=== PATIENT | male | born 1960 | race Caucasian/White ===

== ENCOUNTER 2021-09-05 14:21 | Outpatient (CLI) | payer OTHER, SELFPAY ==
--- NOTE | ~2021-09-05 | CT_ITS ---
EXAMINATION: CTA chest PE protocol DATE: 09/05/2021 15:17 INDICATION: Elevated d-dimer TECHNIQUE: Computed tomography angiography (CTA) of the chest was performed with 100 mL Omnipaque-350 intravenous contrast timed to evaluate the pulmonary arteries. Coronal maximum intensity projection 3D-reconstructions were created by the technologist. Automated exposure control and iterative reconst ruction technique were employed. Exam dose: 929.51 mGy-cm total exam DLP. COMPARISON: None. FINDINGS: There is diagnostic contrast enhancement of the pulmonary arteries and no evidence of pulmo nary embolism. No thoracic aortic aneurysm or dissection. Heart size is within normal range. No pericardial or pleural effusion. Azygos lobe, a normal anatomic variant. Approximately 4 mm lingular soft tissue nodule. No pulmonary consolidation. Normal morphology of the adrenal glands. No suspicious osteolytic or osteoblastic lesions are noted. IMPRESSION: No evidence of pulmonary embolism 4 mm lingular nodule; if the patient is a smoker or has other risk factors for lung cancer, consider 01/22/[address] thorax follow-up Reviewed, dictated and finalized at Location [facility]. Reviewed, dictated and finalized at location A. FORCE ADVISOR
== END 2021-09-05 14:22 | disposition home or self-care (01) ==
DX: R79.1 Abnormal coagulation profile (principal)
CPT/HCPCS: 71275; Q9967

== ENCOUNTER 2021-09-26 13:27 | Outpatient (CLI) | payer OTHER, SELFPAY ==
--- NOTE | 2021-09-26 | ECHO_ITS ---
Patient Info Name: Pelon Landeros Age: 60 years : 1960 Gender: Male Ht: 73 in Wt: 250 lbs BSA: 2.45 m2 HR: 80 bpm BP: 177 / 103 mmHg Heart Rhythm: Sinus Rhythm Technical Quality: Fair Exam Date: 09/26/2021 1:59 PM Exam Location: [facility] Patient Status: Outpatient Admit Date: 09/26/2021 Staff Ordering Physician: DENNY GILL Corporate Licensed Broker: Dennise Cadena RDCS Attending Provider: DENNY GILL Exam Type: CA echo doppler color flow Study Info Indications R09.89 - JVD Complete two-dimensional, color flow and Doppler transthoracic echocardiogram is performed. Summary 1. Complete two-dimensional, color flow and Doppler transthoracic echocardiogram is performed. 2. Left ventricular chamber dimension is normal. 3. Left ventricular systolic function is normal, estimated at 60-65%. 4. There is mildly increased left ventricular wall thickness. 5. The left ventricular diastolic function is grade I diastolic dysfunction. 6. There is mild tricuspid valve regurgitation. Left Ventricle Left ventricular chamber dimension is normal. Left ventricular systolic function is normal, estimated at 60-65%. There is mildly increased left ventricular wall thickness. The left ventricular diastolic function is grade I diastolic dysfunction. Right Ventricle Right ventricular chamber dimension is normal. Right ventricular systolic function is normal. Left Atria Left atrial chamber dimension is normal. Right Atria Right atrial chamber dimension is normal. Atrial Septum Thin and hypermobile atrial septum.. Aortic Valve The aortic valve is trileaflet. There is mild aortic valve sclerosis. There is no aortic valve stenosis. There is trace aortic valve regurgitation. Pulmonic Valve The pulmonic valve is normal. There is no pulmonic valve stenosis. There is trace pulmonic regurgitation. Mitral Valve The mitral valve has normal leaflets. There is no mitral valve stenosis. There is trace mitral valve regurgitation. Tricuspid Valve The tricuspid valve leaflets are normal. There is no significant tricuspid valve stenosis. There is mild tricuspid valve regurgitation. No pulmonary hypertension, estimated pulmonary arterial systolic pressure is 31 mmHg. Pericardium/Pleural The pericardium appears normal. There is no pericardial effusion. Inferior Vena Cava Normal inferior vena cava with >50% collapse upon inspiration consistent with normal right atrial pressure, 10 mmHg. Aorta The aortic root size at the sinus of Valsalva is normal. Left Ventricular Outflow Tract Name Value Normal LVOT 2D LVOT Diameter 2.0 cm LVOT Doppler LVOT Peak Gradient 4 mmHg LVOT Mean Gradient 2 mmHg LVOT VTI 19 cm LVOT VTI/AV VTI Ratio 1.0 LVOT Stroke Volume 63 ml LVOT CO 5.0 l/min LVOT CI 2.1 l/min/m2 Pulmonic Valve
--- NOTE | ~2021-09-26 | US_ITS ---
EXAMINATION: US thyroid DATE: 09/26/2021 15:20 INDICATION: Enlarged thyroid. TECHNIQUE: Multiple ultrasound images of the thyroid were obtained. COMPARISON: None. FINDINGS: The right thyroid lobe measures 4.7 x 2.2 x 2.0 cm. The left thyroid lobe measures 4.2 x 2.3 x 1.8 c m. In the left thyroid lobe, there is a 4 mm coarse calcification. In the left thyroid lobe, there i s a 2.5 cm mixed cystic and solid, isoechoic, [id number]-uvew nodule with lobulated margin without ec hogenic foci (TI-RADS TR4). In the right thyroid lobe, there is an 8 mm solid, isoechoic, wider-than- tall nodule with ill-defined margin without echogenic foci (TR3). IMPRESSION: 1. Thyroid nodules. Ultrasound-guided fine-needle aspiration of the 2.5 cm left thyroid nodule is rec ommended. Reviewed, dictated and finalized at location E. OFF SAW[employer]ER [employer] IMPRESSION: 1. Thyroid nodules. Ultrasound-guided fine-needle aspiration of the 2.5 cm left thyroid nodule is recommended.
== END 2021-09-26 13:28 | disposition home or self-care (01) ==
DX: E04.9 Nontoxic goiter, unspecified (principal)
CPT/HCPCS: 76536; 93306

== ENCOUNTER 2021-10-03 12:57 | Outpatient (CLI) | payer OTHER, SELFPAY ==
--- NOTE | ~2021-10-03 | US_ITS ---
EXAMINATION: US FNA w image guidance DATE: 10/03/2021 14:08 INDICATION: Left thyroid nodule TECHNIQUE: A time-out was performed to verify the patient's name, date of , and procedure to be performed . The procedure and its benefits and risks were discussed with the patient. Risks specifically discus sed included bleeding and infection. The patient understood the risks and agreed to proceed. The neck was prepped and draped in the usual sterile manner. 3 mL 1% lidocaine was used for local anesthesia . 6 passes were made with a 25G needle into the lesion. Appropriate needle location was documented with continuous sonographic guidance. The specimens were passed to the biochemistry technologist in the room. A sterile bandage was applied. There were no immediate complications. FINDINGS: Grayscale ultrasound images demonstrate biopsy needles advanced into a 1.8 cm solid TI-RADS 4 left th yroid nodule. IMPRESSION: 1. Successful ultrasound-guided fine needle aspiration of . Reviewed, dictated and finalized at location A. D SUPERINTENDENT
== END 2021-10-03 12:58 | disposition home or self-care (01) ==
LOC: ANHIMG 13:01
DX: E04.1 Nontoxic single thyroid nodule (principal)
CPT/HCPCS: 10005; 88173; 88305

== ENCOUNTER 2022-03-20 13:47 | Outpatient (CLI) | payer OTHER, SELFPAY ==
--- NOTE | ~2022-03-20 | CT_ITS ---
EXAMINATION: CT diagnostic chest wo con DATE: 03/20/2022 14:13 INDICATION: Lung nodule. Nonsmoker. TECHNIQUE: Computed tomography (CT) of the chest was performed without intravenous contrast. Automate d exposure control and iterative reconstruction technique were employed. Exam dose: 331.45 mGy-cm to yovanny exam DLP. COMPARISON: 09/05/2021 CTA chest FINDINGS: Interval mildly decreased size of small lingular nodule since 09/05/2021, most consistent wi th benign process. Azygos lobe, normal variant. No pulmonary infiltrate or consolidation or pulmonary mass lesion. No thoracic aortic aneurysm or hilar or mediastinal mass lesion or lymphadenopathy. Normal heart size . No pericardial or pleural effusion. Normal morphology of the adrenal glands. IMPRESSION: Interval decreased size of small lingular nodule, most consistent with benign process. F urther evaluation is not required. Reviewed, dictated and finalized at Location A. Reviewed, dictated and finalized at location B. IMPRESSION: Interval decreased size of small lingular nodule, most consistent with benign process. Further evaluation is not required.
== END 2022-03-20 13:48 | disposition home or self-care (01) ==
DX: R91.1 Solitary pulmonary nodule (principal)
CPT/HCPCS: 71250

== ENCOUNTER 2022-10-17 12:53 | Outpatient (CLI) | payer OTHER, SELFPAY ==
--- NOTE | ~2022-10-17 | US_ITS ---
EXAMINATION: US thyroid DATE: 10/17/2022 14:05 INDICATION: Left thyroid nodule. TECHNIQUE: Multiple ultrasound images of the thyroid were obtained. COMPARISON: Ultrasound 09/26/2021 FINDINGS: The right thyroid lobe measures 4.9 x 1.8 x 2.0 cm. The left thyroid lobe measures 5.0 x 1.8 x 2.2 c m. In the right thyroid lobe, there is a 10 mm solid, isoechoic, wider than tall nodule with smooth margin without echogenic foci (TI-RADS TR3). In the left thyroid lobe, there is a 2.6 cm predominantl y solid, hypoechoic, wider than tall nodule with ill-defined margin without echogenic foci (TR4). The re is a 3 mm coarse calcification in left thyroid isthmus. IMPRESSION: 1. Left thyroid nodule, stable from 09/26/2021. Biopsy on 10/03/2021 was benign. Reviewed, dictated and finalized at location A. SPRAYER FIRST
== END 2022-10-17 12:54 | disposition home or self-care (01) ==
DX: E04.1 Nontoxic single thyroid nodule (principal)
CPT/HCPCS: 76536

== ENCOUNTER 2022-12-26 10:52 | Emergency (ER) | payer OTHER, SELFPAY ==
[2022-12-26 11:03] VITALS: BP 158/105; PULSE 85; RESP 16; TEMP 37; O2SAT 99
--- NOTE | 2022-12-26 11:13 | ED.URI ---
HPI - URI/Sore Throat General Chief Complaint: Upper Respiratory Infection Stated Complaint: COUGH/CHEST/EAR Time Seen by Provider: 12/26/22 11:13 Source: patient Mode of arrival: ambulatory Limitations: no limitations History of Present Illness HPI Narrative: Patient is a 62-year-old male who presents with congestion, cough, left ear pain and intermittent sore throat for 2 weeks. Patient states all of his grandkids have been sick, but were treated with antibiotics and are now better. Patient states sore throat is worse 1st thing in the morning. States he has tried [id number] medication with no relief. Denies any fever or chills, shortness of breath, headache, sinus pressure. Related Data Allergies Allergy/AdvReac Type Severity Reaction Status Date / Time No Known Allergies Allergy Verified 12/26/22 11:00 Review of Systems Review of Systems: All systems reviewed & are unremarkable except as noted in HPI and below Constitutional: Constitutional: Denies body ache(s), Denies chills, Denies fatigue, Denies fever(s), Denies headache(s), Denies malaise and Denies weakness Eyes: Eyes: Denies blurry vision, Denies itchy eyes and Denies loss of vision ENT: Reports otalgia, Denies headache(s), Reports nasal congestion, Reports nasal discharge, Denies sinus pain and Reports sore throat Cardiovascular: Cardiovascular: Denies chest pain, Denies irregular heart rhythm and Denies dyspnea Respiratory: Respiratory: Reports cough and Denies dyspnea Gastrointestinal: Gastrointestinal: Denies abdominal pain, Denies diarrhea, Denies nausea and Denies vomiting Musculoskeletal: Musculoskeletal: Denies back pain, Denies myalgias and Denies arthralgias Integumentary/Breasts: Skin/Breast: Denies pruritus and Denies rash Neurologic: Denies headache(s), Denies loss of vision and Denies weakness Psychiatric: Psychiatric: Reports no additional psychiatric complaints Endocrine: Endocrine: Denies fatigue Allergic/Immunologic: Allergic/Immunologic: Denies itchy eyes PMFSH Past Medical History Medical History Flat feet, bilateral History of stress test (~2004) Prostate cancer Surgical History Surgical History H/O bilateral inguinal hernia repair (~1970) History of colonoscopy Family History Family History Other CHF (congestive heart failure) Diabetes mellitus Kidney disease Pancreatic cancer Thyroid cancer Social History Social History Smoking status: Never smoker Alcohol intake: current Substance use: never Substance use type: does not use Lack of Transportation: No Lack of Food: Never True Current Housing: Decline to Answer Concerned About Future Housing: Decline to Answer Difficulty Paying Gas/Electric Bills: Decline to Answer Difficulty Paying for Meds: Decline to Answer Currently Unemployed: Decline to Answer Education: Decline to Answer Difficulty w/ Childcare or Family Care: Decline to Answer Comments At time of signature, agree with nursing past medical, surgical, social and family history. There is no relevant family history pertinent to the presenting complaint. Exam Const: General: cooperative, healthy appearing, comfortable, no acute distress and well nourished Nutritional Appearance: well nourished Orientation/consciousness: patient oriented x3 Limitations: no limitations HENMT: Head: normal to inspection, normocephalic and atraumatic Ears: hearing grossly normal bilaterally, external ears normal, TM normal on the right, EAC's normal, no periauricular adenopathy and TM abnormal bulging on the left and erythematous on the left Face/Nose/Sinus: Normal external nose present, Abnormal mucous membranes and turbinates present erythematous bilateral and
== END 2022-12-26 11:27 | disposition home or self-care (01) ==
PROVIDERS: Emergency Provider Nurse Practitioner Family
DX: J32.9 Chronic sinusitis, unspecified (principal); J40 Bronchitis, not specified as acute or chronic; H65.192 Other acute nonsuppurative otitis media, left ear
CPT/HCPCS: 99213; G0463

== ENCOUNTER 2023-06-30 08:11 | Emergency (ER) | payer OTHER, SELFPAY ==
--- NOTE | 2023-06-30 08:23 | ED.URI ---
HPI - URI/Sore Throat General Chief Complaint: Upper Respiratory Infection Stated Complaint: COUGH/CONGESTION Time Seen by Provider: 06/30/23 08:45 Source: patient and RN notes reviewed Mode of arrival: ambulatory Limitations: no limitations History of Present Illness HPI Narrative: 62 year old male presents with concern for 2 week history of cough and chest congestion. He reports he has been taking OTC meds without relief. Reports cough keeps him awake at night. He denies fever, reports some body aches MD elicited complaint: cough and sore throat Related Data Allergies Allergy/AdvReac Type Severity Reaction Status Date / Time No Known Allergies Allergy Verified 06/30/23 08:32 Review of Systems Review of Systems: CONSTITUTIONAL: Denies malaise, chills, sweats, or fever. EYES: Denies visual changes, redness, or discharge. ENT: Reports rhinorrhea, congestion. Denies sinus pain, otalgia and sore throat. CARDIOVASCULAR: Denies chest pain, palpitations, or edema. RESPIRATORY: Reports cough and chest congestion. Denies dyspnea. GASTROINTESTINAL: Denies abdominal pain, nausea, vomiting, diarrhea SKIN: Denies rash or itching. MUSCULOSKELETAL: Denies myalgia. NEUROLOGIC: Denies headache. All systems reviewed & are unremarkable except as noted in HPI and below PMFSH Past Medical History Medical History Flat feet, bilateral History of stress test (~2004) Prostate cancer Surgical History Surgical History H/O bilateral inguinal hernia repair (~1969) History of colonoscopy Family History Family History Other CHF (congestive heart failure) Diabetes mellitus Kidney disease Pancreatic cancer Thyroid cancer Social History Social History Smoking status: Never smoker Alcohol intake: current Substance use: never Substance use type: does not use Lack of Transportation: No Lack of Food: Never True Current Housing: Decline to Answer Concerned About Future Housing: Decline to Answer Difficulty Paying Gas/Electric Bills: Decline to Answer Difficulty Paying for Meds: Decline to Answer Currently Unemployed: Decline to Answer Education: Decline to Answer Difficulty w/ Childcare or Family Care: Decline to Answer Comments At time of signature, agree with nursing past medical, surgical, social and family history. There is no relevant family history pertinent to the presenting complaint Exam Narrative: GENERAL: Well-appearing, well-nourished, and in no acute distress. HEAD: Normocephalic EYES: PERRLA, conjunctivae clear ENT: Nares clear, turbinates edematous and erythematous, clear discharge. Mucous membranes moist. TM pearly schuster with dull light reflex bilaterally; no tragal tenderness. Oropharynx not erythematous without lesions. Tonsils not enlarged and without exudate, no drooling, no hoarseness, no trismus, uvula midline. NECK: Supple. No lymphadenopathy CHEST: Clear to auscultation, breath sounds equal. No wheezing, rhonchi, rales, or stridor. No respiratory distress, speaks in full sentences. HEART: Regular rate and rhythm. No murmur heard. SKIN: Warm, dry, no rash. NEURO: Alert and oriented x3. PSYCH: Normal mood and affect Course Course Emergency Course: Patient is aware of diagnosis, understands and agrees to treatment plan. Anticipatory guidance given. Patient agrees to follow-up as directed and is aware of reasons to seek care at the emergency department. Portions of this record may have been created with voice recognition software Level of Care: Express Care Visit Vital Signs Vital signs: Reviewed. MDM - URI/Sore Throat MDM Narrative Medical decision making narrative: Differential diagnosis considered: [place] virus, strep pharyngitis, all
[2023-06-30 08:25] VITALS: BP 174/72; PULSE 92; RESP 16; TEMP 36.3; O2SAT 100
== END 2023-06-30 08:57 | disposition home or self-care (01) ==
PROVIDERS: Emergency Provider Nurse Practitioner
DX: J40 Bronchitis, not specified as acute or chronic (principal); Z85.46 Personal history of malignant neoplasm of prostate
CPT/HCPCS: 99213; G0463

== ENCOUNTER 2023-08-11 10:44 | Outpatient (CLI) | payer OTHER, SELFPAY ==
--- NOTE | ~2023-08-11 | XR_ITS ---
XR knee RT min 4V 08/11/2023 11:09 Indication: Medial knee pain. Procedure: 4 views right knee Comparison: No prior studies for comparison. Findings: There is near complete loss of joint space medially with varus angulation. Small knee effus ion. No fracture or traumatic malalignment. Impression: 1: Advanced joint space loss medial compartment with varus angulation. Reviewed, dictated and finalized at location L. [employer] Impression: 1: Advanced joint space loss medial compartment with varus angulation.
== END 2023-08-11 10:45 | disposition home or self-care (01) ==
PROVIDERS: Visit Provider Orthopaedic Surgery
DX: M17.11 Unilateral primary osteoarthritis, right knee (principal)
CPT/HCPCS: 73564

== ENCOUNTER 2023-11-23 09:52 | Outpatient (CLI) | payer OTHER, SELFPAY ==
--- NOTE | 2023-11-23 10:40 | ECG_ITS ---
Measurements Intervals [place] Rate: 70 P: 30 [place]: 162 QRS: 14 QRSD: 92 T: 22 QT: 365 QTc: 386 Interpretive Statements SINUS RHYTHM LOW QRS VOLTAGE BORDERLINE ECG SEE SCANNED COPY FOR SIGNATURE MTDD
[2023-11-23 11:18] LABS: Basophils Percent Auto 0.6 % (0.2-1.2); Eosinophils Absolute Auto 0.4 K/mm3 (0-0.3); Eosinophils Percent Auto 5.8 % (0-4.4); Hematocrit 43.8 % (42.0-52.0); Immature Granulocyte Absolute 0.01 K/mm3 (0.00-0.031); Immature Granulocyte Percent A 0.2 % (0-0.5); Lymphocytes Absolute Auto 1.64 K/mm3 (0.9-3.2); Lymphocytes Percent Auto 26.5 % (18.3-44.2); Mean Corpuscular Hemoglobin 29.2 pg (26-34); Mean Corpuscular Volume 91.3 fl (80-100); Mean Platelet Volume 9.6 fl (7.4-10.4); Monocytes Absolute Auto 0.7 K/mm3 (0.1-0.6); Monocytes Percent Auto 11.5 % (2.6-8.5); Neutrophils Absolute Auto 3.4 K/mm3 (1.3-6.7); Neutrophils Percent Auto 55.4 % (45.5-73.1); Platelet Count Result 255 k/mm3 (150-375); Red Cell Distribution Width 13.1 % (11.5-14.5); White Blood Count 6.2 K/mm3 (4.5-10.0)
== END 2023-11-23 09:53 | disposition home or self-care (01) ==
LOC: ANHSURGERY 09:56
PROVIDERS: Visit Provider Orthopaedic Surgery
DX: M17.11 Unilateral primary osteoarthritis, right knee (principal); I10 Essential (primary) hypertension; Z01.818 Encounter for other preprocedural examination
CPT/HCPCS: 36415; 85025; 93005

== ENCOUNTER 2023-12-15 00:02 | Day surgery (SDC) | payer OTHER, SELFPAY ==
--- NOTE | 2023-11-23 09:40 | PC.NURSE ---
PRE-OP INSTRUCTIONS, PLEASE READ CAREFULLY Report to the Outpatient Waiting Room, entrance under the green pavilion located off [facility], at time _1030_ on date _12/15/23_. Planned Procedure Time: _1230_. BRING YOUR WALKER, PACK A SMALL OVERNIGHT BAG AND LEAVE IN THE CAR Time changes happen often and if your time is changed the preop area will call you the afternoon before. - You and your visitor will be asked to self-screen and do not enter if you have any COVID symptoms. - A mask is optional within the hospital at this time. Patients may have clear liquids (water, carbonated beverages, clear teas, apple juice) until 3 hours prior to surgery (0930 AM) with a maximum of 20 ounces. - No food from midnight until time of surgery Take the following medications with a SIP of water the morning of surgery: _AMLODIPINE, & TYLENOL IF NEEDED_ DO NOT STOP ANY OF YOUR OTHER PRESCRIPTION MEDICATIONS PRIOR TO SURGERY ?EXCEPT THE FOLLOWING Medications to discontinue per DR. HUNTER - _ALEVE 7 DAYS PRIOR TO SURGERY, Date to take last dose 12/07/23_ Please no make-up, nail arabic, hairspray, perfume, deodorant, or body powder the day of surgery. No jewelry (including any body piercings) or valuables the day of surgery, leave them at home. Please take a shower or bath the night before, or the morning of, surgery with an antibacterial soap. Wear comfortable, loose fitting clothing. - Jewelry must be removed prior to entering the operating room. Rings and piercings that are not removed may be cut off. - The hospital will not accept responsibility for valuables. - Please leave all valuables, including medications, at home the day of surgery. If you are going home after surgery, a licensed regional truck driver must drive you home. - NO public transportation without another adult if you receive anesthesia. - We recommend that an adult stay with you for 24 hours following discharge. - We also recommend that you do not drive, make important decision, drink alcoholic beverages, or take any drugs that were not prescribed by your health care provider for at least 24 hours after your discharge time. Follow any additional instructions given to you from your surgeon. If you or anyone in your household have experienced Covid symptoms in the past week, please notify your surgeon or the nurse liaison at the phone number below for possible testing. Instructions given to _PATIENT & SPOUSE_and asked if any additional questions and then verbalized understanding. Patient advised to call surgeon office or pre surgery nurse liaison [phone] if any additional questions.
[2023-11-23 10:09] VITALS: BP 158/74; PULSE 76; RESP 20; TEMP 36.7; O2SAT 98; BMI 35.2
[2023-12-15] VITALS (11 sets, daily range): BP systolic 129–160; BP diastolic 65–92; PULSE 72–88; RESP 12–20; TEMP 36.6–36.9; O2SAT 98–100
--- NOTE | ~2023-12-15 | XR_ITS ---
EXAMINATION: [id number] DATE: 12/15/2023 15:25 INDICATION: Right knee arthroplasty. Postop. TECHNIQUE: 2 views of right knee were obtained. COMPARISON: Right knee radiographs 11/23/2023 FINDINGS: There is a medial compartment arthroplasty in near-anatomic alignment. No fracture. There a re tiny osteophytes in the lateral and patellofemoral compartments. There is gas in the soft tissues, consistent with recent surgery. IMPRESSION: 1. Medial compartment arthroplasty in near-anatomic alignment. Reviewed, dictated and finalized at location A.
--- NOTE | 2023-12-15 09:44 | WPDHPUPDATE1 ---
History and Physical Update Update Date/Time: 12/15/23 09:44 History and Physical has been reviewed, including an updated exam of the patient. There are NO changes in the patient's condition. Risks, benefits, and alternatives have been discussed and questions answered. Patient agrees to proceed with procedure.
[2023-12-15] MEDS: ACETAMINOPHEN 500 MG TABLET 1000 MG PO (11:10)
[2023-12-15] MEDS: TRANEXAMIC ACID 1,000MG/ISO100 1,000 MG/100 ML BAG 200 MG IVPB (11:15)
[2023-12-15] MEDS: LACTATED RINGERS 1,000 ML 30 ML IV CONT ×2 (11:20→15:08)
--- NOTE | 2023-12-15 12:47 | WPDANESEPPF ---
Anes - Initial Pre Proc Eval Procedure: Operation Date: 12/15/23 12:30 Proposed Procedures p Right Partial Knee Arthroplasty - Dorian Verduzco MD Date/Time: 12/15/23 12:47 Surgeon: Dorian Verduzco MD Pre Op Diagnosis: primary oa Right knee Patient Data Age: 63 Gender: M Height: 1.83 m Weight: 115.2 kg Last Vital Signs Temp 36.9 C 12/15/23 11:15 Pulse 79 12/15/23 11:15 Resp 14 12/15/23 11:15 BP 160/92 H 12/15/23 11:15 Pulse Ox 99 12/15/23 11:15 O2 Del Method Room Air 12/15/23 11:15 Allergies Allergy/AdvReac Type Severity Reaction Status Date / Time No Known Allergies Allergy Verified 12/15/23 11:27 Home Medications Medication Instructions Recorded Confirmed Type acetaminophen 500 mg tablet 1,000 mg PO Q6H PRN Pain 11/23/23 11/23/23 History amlodipine 5 mg tablet 5 mg PO DAILY 11/23/23 12/15/23 History naproxen sodium 220 mg tablet 220 mg PO BID PRN Pain 11/23/23 11/23/23 History (Aleve) aspirin 81 mg tablet,delayed 81 mg PO BID 14 days #28 tabs 12/15/23 Rx release meloxicam 15 mg tablet 15 mg PO DAILY #30 tabs 12/15/23 Rx oxycodone-acetaminophen 5 mg-325 1 - 2 tablet PO Q4-6H PRN pain #30 12/15/23 Rx mg tablet tabs prednisone 5 mg tablet 5 mg PO DAILY 3 weeks #21 tabs 12/15/23 Rx Patient hx anesthesia problems: none Family hx anesthesia problems: none Results Review: All pre-operative results and documents have been reviewed as part of the pre-operative evaluation. [facility] Past Medical History Medical History (Updated 12/15/23 @ 12:52 by Salty Chávez DO) Flat feet, bilateral History of stress test (~2004) Hypertension Prostate cancer Surgical History Surgical History (Updated 12/15/23 @ 10:35 by RAMESH Lu) H/O bilateral inguinal hernia repair (~1969) History of colonoscopy Family History Family History Other CHF (congestive heart failure) Diabetes mellitus Kidney disease Pancreatic cancer Thyroid cancer Social History Social History Smoking status: Never smoker Second hand tobacco smoke exposure: No Additional smoking assessment comments: PT DENIES ALL FORMS OF TOBACCO USE Alcohol intake: current Drinks per week: 1 Substance use: never Substance use type: does not use Lack of Transportation: No Lack of Food: Never True Current Housing: Decline to Answer Concerned About Future Housing: Decline to Answer Difficulty Paying Gas/Electric Bills: Decline to Answer Difficulty Paying for Meds: Decline to Answer Currently Unemployed: Decline to Answer Education: Decline to Answer Difficulty w/ Childcare or Family Care: Decline to Answer Living arrangements: with family Spiritual care concerns: No Anes - Eval Final PreProcedure Day of Procedure 12/15/23 12:47 Patient weight: obese Heart: regular rate and rhythm Lungs: clear to auscultation Airway: Mallampati scale class II Neurological: alert and oriented Last oral intake: >/= 8 hours ASA classification: III Emergent: no Anesthetic plan: proceed Anesthesia type and monitoring: general LMA and standard monitoring Results Review: All pre-operative results and documents have been reviewed as part of the pre-operative evaluation. Informed Consent: The patient's anesthetic plan and its attendant risks and benefits were discussed with the patient/family/POA. Questions were solicited and answers provided to the satisfaction of the patient/family/POA.
--- NOTE | 2023-12-15 13:06 | WPDANESPNB ---
Anes - Peripheral Nerve Block Date/Time: 12/15/23 13:06 I have discussed with the patient/family/POA the placement of a peripheral nerve block for post-operative pain management, including associated risks, benefits, complications, and side effects. Alternative methods of post-operative analgesia were detailed. Questions were solicited and answers provided to the satisfaction of the patient/family/POA. Time-Out: A pre-procedural Time-Out was completed immediately before starting the procedure and confirmed: Patient Identification, Site, Procedure, Patient Position and the Availability of Requisite Equipment. Clinical Indications: Acute post-operative pain management requested by the operative surgeon. Nerve Block Insertion Note Anes-nerve block: adductor canal right Patient position: supine Skin prep: chlorhexidine Needle: 22 gauge, stimulating, insulated echogenic needle. Needle length: 80 mm Technique: ultrasound Injectate: bupivacaine 0.5% with epi 5 mcg/ml (30cc - no epi) Observations: tolerated well Complications: none Procedure start time:: 1258 Procedure end time:: 1302
[2023-12-15] MEDS: ceFAZolin 2 GM/D5W 50 ML 2 GM/50 ML BAG IVPB (13:25)
[2023-12-15] MEDS: SODIUM CHLORIDE 0.9% IV 37.7 ML, MORPHINE SULFATE INJ (*CRX) 2 MG, ROPivacaine HCL 1% 2... INFILTRATE (13:40)
--- NOTE | 2023-12-15 15:03 | P.OP_ITS ---
Procedure Note - Detailed Date of Procedure 12/15/23 Pre-op Diagnosis Degenerative arthritis, right knee. Post-op Diagnosis Same Procedure Performed Partial knee arthroplasty, right knee, medial compartment. Surgeon Dorian Verduzco MD Consultant Intern Nicci Martinez PA-C Anesthesia General Findings Moderate to severe medial compartment disease. Cartilage wear and softening. Bone exposed anteromedial tibia. Complex meniscus tear and erosive changes on the femur. Patellofemoral and lateral compartments normal. ACL normal. Significant medial pseudolaxity, and hyperextension. Description of Procedure The patient was given a general anesthetic. Preoperative antibiotics were given. The knee was prepped and draped in the usual sterile fashion. A longitudinal incision was created along the medial aspect of the patellar tendon. A minimally invasive optimized mid vastus approach was completed. No medial release was taken. The external alignment guide was used to cut the tibia with anatomic posterior slope. A 4 millimeter resection was taken. The spacer block technique was utilized to measure flexion and extension gaps after the osteophytes were removed. The difference was used to calculate the distal resection. The distal cutting block was utilized to cut the distal femur. The AP and chamfer block was utilized for this last cuts. The femur and tibia were sized. Range of motion and gap balancing was assessed. This was tested with the 1.5 millimeter spacer. The bony surfaces were cleaned with lavaged. Lug holes were drilled. The real components were cemented into position. Excess cement was carefully removed. The tourniquet was released. Meticulous hemostasis was maintained. The wound was closed with interrupted 1 Vicryl suture followed by a running 0 Quill suture and 2-0 Quill suture. Steri-Strips are placed in the skin the patient was extubated and brought to recovery room in stable condition. There were no complications. Physician surgical assistant certified, Nicci Martinez PA-C, required for surgery; including patient positioning, draping, tissue retraction, maintaining instrument position, cement removal, wound closure, and dressing placement. Implants [facility] EHR PKR system femur size 4, tibia size 3, 10 mm polyethylene insert . One batch Simplex antibiotic cement. Estimated Blood Loss 50 Drains No Pathology None sent Complications No immediate complications Condition Stable Disposition PACU [facility] Billing Surgery - Charge Forward: Surgery Billing
[2023-12-15] MEDS: fentaNYL CITRATE INJ (*CRX) 100 MCG/2 ML VIAL 25 MCG IV PUSH ×2 (15:42→15:51)
[2023-12-15] MEDS: oxyCODONE HCL (*CRX) 5 MG TAB IR PO (16:45)
== END 2023-12-15 17:22 | disposition home or self-care (01) ==
PROVIDERS: Visit Provider Orthopaedic Surgery
PROC: (CPT 27446; principal; 2023-12-15 12:30)
DX: M17.11 Unilateral primary osteoarthritis, right knee (principal); G89.18 Other acute postprocedural pain; I10 Essential (primary) hypertension; Z85.46 Personal history of malignant neoplasm of prostate; Z79.82 Long term (current) use of aspirin; E66.9 Obesity, unspecified; Z68.34 Body mass index [BMI] 34.0-34.9, adult
CPT/HCPCS: 27446; 64447; 73560; 97110; 97161; 97165; A9270; C1713; C1776; J0171; J0690; J1100; J1170; J1885; J2250; J2270; J2405; J2704; J2795; J3010; J7120

== ENCOUNTER 2024-01-14 11:37 | Outpatient (CLI) | payer OTHER, SELFPAY ==
--- NOTE | ~2024-01-14 | US_ITS ---
EXAMINATION:US venous doppler LE RT INDICATION:Recent right knee replacement with leg swelling TECHNIQUE: Multiple grayscale, color flow and Doppler images of the right lower extremity deep venous systems were obtained and reviewed. COMPARISON:No prior studies for comparison. FINDINGS: The common femoral, superficial femoral and popliteal veins demonstrate normal respiratory variation, augmentation and compressibility. Color flow is also seen within the greater saphenous an d profunda veins. The right posterior tibial and peroneal veins are not adequately visualized. IMPRESSION: 1: No lower extremity deep venous thrombosis. Limited study. Reviewed, dictated and finalized at location B.
== END 2024-01-14 11:38 | disposition home or self-care (01) ==
PROVIDERS: Visit Provider Orthopaedic Surgery
DX: M79.89 Other specified soft tissue disorders (principal); Z96.651 Presence of right artificial knee joint
CPT/HCPCS: 93971

== ENCOUNTER 2024-02-02 11:38 | Outpatient (CLI) | payer OTHER, SELFPAY ==
--- NOTE | ~2024-02-02 | XR_ITS ---
EXAM: XR knee RT 3V DATE: 02/02/2024 12:01 HISTORY: Z47.89 - Encounter for other orthopedic aftercare . COMPARISON: 12/15/2023. FINDINGS: Normal mineralization. No fracture or dislocation. No lytic or blastic lesion. Uncomplicat ed appearing right medial compartment hemiarthroplasty hardware. Minimal osteophytosis in the lateral and patellofemoral compartments. Moderate volume joint fluid. No erosion or periosteal change. Soft tissues within normal limits. IMPRESSION: No acute osseous finding in the right knee. No radiographic evidence of hardware related consultation. Moderate volume joint effusion. Reviewed, dictated and finalized at location K. IMPRESSION: No acute osseous finding in the right knee. No radiographic evidenc e of hardware related consultation. Moderate volume joint effusion.
== END 2024-02-02 11:39 | disposition home or self-care (01) ==
PROVIDERS: Visit Provider Orthopaedic Surgery
DX: M25.461 Effusion, right knee (principal); Z47.89 Encounter for other orthopedic aftercare
CPT/HCPCS: 73562

== ENCOUNTER 2024-04-14 10:30 | Outpatient (CLI) | payer OTHER, SELFPAY ==
--- NOTE | ~2024-04-14 | XR_ITS ---
EXAMINATION: XR knee RT 3V DATE: 04/14/2024 10:42 INDICATION: Aftercare following joint replacement surgery. TECHNIQUE: 3 views of right knee including standing views were obtained. COMPARISON: Right knee radiograph 02/02/2024 FINDINGS: There is a medial compartment arthroplasty in near-anatomic alignment. No fracture. No kelli prosthetic lucency to suggest loosening or infection. There are tiny osteophytes in the lateral lazaro rtment and patellofemoral compartment. There is a small knee joint effusion. IMPRESSION: 1. Medial compartment arthroplasty in near-anatomic alignment. 2. 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 3. Small knee joint effusion. Reviewed, dictated and finalized at location A.
== END 2024-04-14 10:31 | disposition home or self-care (01) ==
PROVIDERS: Visit Provider Orthopaedic Surgery
DX: M17.11 Unilateral primary osteoarthritis, right knee (principal); M25.461 Effusion, right knee; Z47.1 Aftercare following joint replacement surgery
CPT/HCPCS: 73562

== ENCOUNTER 2024-09-30 12:41 | Emergency (ER) | payer OTHER, SELFPAY ==
[2024-09-30 12:45] VITALS: BP 160/85; PULSE 94; RESP 18; TEMP 37.1; O2SAT 98
--- NOTE | 2024-09-30 12:59 | ED_ITS ---
HPI - URI/Sore Throat General Chief Complaint: Upper Respiratory Infection Stated Complaint: COUGH Time Seen by Provider: 09/30/24 12:59 Source: patient Mode of arrival: ambulatory Limitations: no limitations History of Present Illness HPI Narrative: 63-year-old male presents with complaint of cough, chest congestion, fatigue, body aches for 4 days. Afebrile. Taking [id number] medications to treat symptoms. Patient concerned he may need antibiotic. All systems reviewed and negative except as noted above. Related Data Home Medications ?Medication ?Instructions ?Recorded ?Confirmed ?Last Taken ?Type amlodipine 5 mg tablet 5 mg PO DAILY 11/23/23 04/20/24 12/15/23 History Allergies Allergy/AdvReac Type Severity Reaction Status Date / Time No Known Allergies Allergy Verified 09/30/24 12:42 Review of Systems Review of Systems: CONSTITUTIONAL: Denies fever, chills, or sweats. Reports fatigue. EYES: Denies visual changes, redness, or discharge. ENT: Reports rhinorrhea, congestion. Denies sore throat, or otalgia. CARDIOVASCULAR: Denies chest pain, palpitations, or edema. RESPIRATORY: Reports cough. Denies dyspnea. GASTROINTESTINAL: Denies abdominal pain, nausea, vomiting, or diarrhea. GENITOURINARY: Denies dysuria or hematuria. SKIN: Denies rash or itching. MUSCULOSKELETAL: Denies back pain, joint pain, or myalgia. NEUROLOGIC: Denies headache, numbness, or weakness. PSYCHIATRIC: Denies anxiety or depression. All other systems reviewed are negative, except as documented in HPI. COUNTS INCLUDE 234 BEDS AT THE [facility] Past Medical History Medical History Flat feet, bilateral History of stress test (~2004) Hypertension Prostate cancer Surgical History Surgical History H/O bilateral inguinal hernia repair (~1969) History of colonoscopy Family History Family History Other CHF (congestive heart failure) Diabetes mellitus Kidney disease Pancreatic cancer Thyroid cancer Social History Social History Smoking status: Never smoker Second hand tobacco smoke exposure: No Additional smoking assessment comments: PT DENIES ALL FORMS OF TOBACCO USE Alcohol intake: current Drinks per week: 1 Substance use: never Substance use type: does not use Lack of Transportation: No Lack of Food: Never True Current Housing: Decline to Answer Concerned About Future Housing: Decline to Answer Difficulty Paying Gas/Electric Bills: Decline to Answer Difficulty Paying for Meds: Decline to Answer Currently Unemployed: Decline to Answer Education: Decline to Answer Difficulty w/ Childcare or Family Care: Decline to Answer Living arrangements: with family Spiritual care concerns: No Comments At time of signature, agree with nursing past medical, surgical, social and family history. There is no relevant family history pertinent to the presenting complaint. Exam Narrative: GENERAL: This is a well-nourished, well-developed patient, ill-appearing but no acute distress HEAD: normocephalic, atraumatic. EYES: PERRL. Sclera clear/white. Vision is grossly intact. EARS: External ears normal, auditory canals clear and without drainage, TMs normal without perforation. Hearing grossly intact. NOSE: External nose normal with clear nasal drainage THROAT: Mucous membranes moist, mild erythema without swelling or exudates NECK: Neck supple, non-tender without lymphadenopathy, masses or thyromegaly. CARDIOVASCULAR: Regular rate and rhythm without murmurs, gallops, or rubs. RESPIRATORY: Clear to auscultation. Breath sounds equal bilaterally. No wheezes, rales, or rhonchi. SKIN: warm, Dry, intact with no suspicious lesions or rash, good texture and turgor. NEURO: awake, alert, and oriented to person, place and time. There were no obvious focal neurologic abnormalities. EXTREMITIES: No joint tenderness, effusion, or edema noted. Course Course Level of Care: Express Care Visit Vital Signs Vital signs: Vital Signs Temperature 37.1 C 09/30/24 12:45 Pulse Rate 94 09/30/24 12:45 Respiratory Rate 18 09/30/24 12:45 Blood Pressure 160/85 H 09/30/24 12:45 Pulse Oximetry 98 09/30/24 12:45 Oxygen Delivery Room Air 09/30/24 12:45 Temperature 37.1 C 09/30/24 12:45 Pulse Rate 94 09/30/24 12:45 Respiratory Rate 18 09/30/24 12:45 Blood Pressure 160/85 H 09/30/24 12:45 Pulse Oximetry 98 09/30/24 12:45 Oxygen Delivery Room Air 09/30/24 12:45 Reviewed MDM - URI/Sore Throat MDM Narrative Medical decision making narrative: Positive influenza a. Recommend patient continue [id number] medications to treat viral symptoms. Lungs are clear to auscultation. Alert, nontoxic. Please be advised this is a medical document. It is intended for [id number] communication. It is written in medical language and may contain unfamiliar abbreviations or verbiage. Medical documents are intended to carry relevant information, facts as evident, and the clinical opinion of the practitioner at the time of the encounter. This report may have been done utilizing a voice recognition system. Attempts have been made to correct errors. However, there may be uncorrected grammatical, spelling, and recognition errors present. The file time of this note does not necessarily represent the time of service. Differential Diagnosis Differential diagnosis: Likely upper respiratory infection, sinusitis, viral infection and influenza Lab Data Labs: Lab Results 09/30/24 09/30/24 Range/Units 13:04 13:09 POC Influenza A Ag Positive (Negative) POC Influenza B Ag Negative (Negative) POC SARS CoV-2 Ag Negative (Negative) Discharge Plan Discharge Clinical Impression: Influenza A Patient Disposition: Home, Self-Care Condition: Stable Instructions: Influenza (ED) Additional Instructions: You were positive for influenza today. Influenza is a virus and symptoms may last 10-14 days. Take doxh-qoq-pomxpub medications to treat her symptoms such as DayQuil NyQuil cold and flu. Take as directed on packaging. Take ibuprofen every 6-8 hours as needed for pain and fever. Drink at least 64 oz of water a day. Place cool mist humidifier in bedroom where you sleep. Follow-up with your primary care physician if symptoms are not improving. Patient Language: Luxembourgish Prescriptions: New benzonatate 200 mg capsule 200 mg PO TID PRN (Reason: cough) Qty: 20 0RF methylprednisolone [Medrol (Farzad)] 4 mg tablets,dose pack See Rx Instructions PO .COMPLEX Qty: 21 0RF Rx Instructions: orally per package directions No Action amlodipine 5 mg tablet 5 mg PO DAILY Follow-up/Referrals: Brigitte,Jessica [Other] Time of Disposition: 13:12
[2024-09-30 13:06] LABS: EDINFLUASCREEN Positive (Negative); EDINFLUBSCREEN Negative (Negative)
[2024-09-30 13:11] LABS: EDCOVIDSCREEN Negative (Negative)
== END 2024-09-30 13:14 | disposition home or self-care (01) ==
PROVIDERS: Emergency Provider Nurse Practitioner Family
DX: J10.1 Influenza due to other identified influenza virus with other respiratory manifestations (principal); Z20.822 Contact with and (suspected) exposure to COVID-19; I10 Essential (primary) hypertension; Z85.46 Personal history of malignant neoplasm of prostate
CPT/HCPCS: 87426; 87804; 99213; G0463